=== PATIENT | female | born 1990 | race Two or more races ===

== ENCOUNTER 2017-10-31 19:44 | Emergency (ER) | payer OTHER ==
[~2017-10-31] VITALS: Ht 177.8 cm; Wt 95.3 kg
[2017-10-31 19:55] VITALS: BP 108/66
[2017-10-31] MEDS ORDERED: Lidocaine 1% MPF 10mg/ml 5ml INJ ONE (20:15)
[2017-10-31] MEDS ORDERED: Bacitracin Oint UD TOPIC ONE (20:15)
[2017-10-31] MEDS ORDERED: TYLENOL EXTRA500 MG ORAL (20:29)
[2017-10-31] MEDS ORDERED: BACITRACIN15 GM TOPIC (20:29)
[2017-10-31 20:40] VITALS: BP 108/66
--- NOTE | 2017-10-31 21:02 | Emergency Room Report ---
History of Present Illness General Chief Complaint: Laceration Source: Patient Present Illness HPI The patient is a 27-year-old female presenting for right hand injury which occurred at work today. She states that she struck her right index finger against a sharp metal object and experienced pain and bleeding. Pain is a 5 out of 10 dull ache and does not radiate. She denies any other injury. She denies any numbness. Last tetanus shot was one month ago. Allergies: Coded Allergies: No Known Allergies (Unverified , 10/31/17) Patient History Past Medical History: see triage record Pertinent Family History: none Last Menstrual Period: 10/25/17 Now: No Reviewed Nursing Documentation: PMH: Agreed; PSxH: Agreed Nursing Documentation-PMH Past Medical History: No Stated History Review of Systems All Other Systems: negative except mentioned in HPI Physical Exam Vital Signs Date Time Temp Pulse Resp B/P (MAP) Pulse Ox O2 Delivery O2 Flow Rate FiO2 10/31/17 19:48 98.2 80 16 108/66 100 Room Air 98.2 Sp02 EP Interpretation: reviewed, normal General Appearance: no apparent distress, alert, GCS 15, non-toxic Head: normocephalic, atraumatic Musculoskeletal: normal range of motion, tender - R dorsal index finger proximal to PIPJ Neurologic: alert, oriented x3, responsive, motor strength/tone normal, sensory intact, speech normal Psychiatric: judgement/insight normal, memory normal, mood/affect normal, no suicidal/homicidal ideation Skin: laceration - 2cm linear laceration proximal to R 2nd PIPJ Lymphatic: no adenopathy Procedures Splinting Splinting : Consent: Verbal Location: R index Pre-Made Type: metal Splint: metal finger Pre-Proc Neuro Vasc Exam: normal Post-Proc Neuro Vasc Exam: normal Patient Tolerated: Well Complications: None Laceration/Wound Repair Laceration/Wound Repair : Consent: Verbal Wound Location: upper extremity Wound's Depth, Shape: superficial, linear Wound Length (cm): 2 Wound Explored: clean Irrigated w/ Saline (ccs): 100 Betadine Prep?: Yes Anesthesia: 1% Lidocaine Volume Anesthetic (ccs): 5 Wound Debrided: minimal Wound Repaired With: sutures Suture Size/Type: 5:0, nylon Number of Sutures: 3 Layer Closure?: No Sterile Dressing Applied?: Yes Splint Applied?: Yes Type of Splint Applied: metal finger Sling Applied?: No Patient Tolerated: Well Complications: None Medical Decision Making PA Attestation Dr. Ashraf is my supervising physician. Patient management was discussed with my supervising physician Diagnostic Impression: Primary Impression: Finger laceration Qualified Codes: S61.210A - Laceration without foreign body of right index finger without damage to nail, initial encounter ER Course The patient is a 27-year-old female presenting for right hand injury which occurred at work today. Ddx considered include but not limited to fracture, tendon/ligament injury, avulsion, nerve damage PE: NAD 2cm linear laceration proximal to R 2nd PIPJ. Full AROM intact. SILT The wound was irrigated with normal saline and cleaned with betadine. A 27g needle was used to administer 5mL of lidocaine w.o epi for digital block. 3 sutures were placed with 5-0 nylon. The wound was well approximated and the patient tolerated the procedure well. The wound was then cleaned and bacitracin was applied. A metal finger splint was applied The patient will continue to keep the wound clean and dry and will followup with PMD and workers compensation. Suture instructions provided. ER precautions are given Last Vital Signs Date Time Temp Pulse Resp B/P (MAP) Pulse Ox O2 Delivery O2 Flow Rate FiO2 10/31/17 20:07 98.2 10/31/17 19:55 80 16 108/66 100 Room Air Status: improved Disposition: HOME, SELF-CARE Condition: Improved Scripts Bacitracin (Bacitracin) 28.4 Gm Oint...g. 1 APPLIC TOPIC THREE TIMES A DAY, #28 GM Prov: ARNOLD LOYAY P.A. 10/31/17 Acetaminophen* (TYLENOL EXTRA STRENGTH*) 500 Mg Tablet 500 MG ORAL Q8H PRN for Prn Headache/Temp > 101, #30 TAB 0 Refills Prov: TERZIAN,CHELSI P.A. 10/31/17 Referrals: NOT CHOSEN [facility]/,REFERRING (PCP) Patient Instructions: Laceration Care, Adult Additional Instructions: I discussed my findings with the patient. All questions and concerns have been answered. Treatment and medication compliance have been addressed. I advised the patient that they need to follow up with PMD in 7 days for wound check and suture removal. If you are unable to see PMD, return to the ED in 7 days. Return to ED if pain remains or worsens, you notice discharge from the wound, the wound continues to bleed, the suture/s fall out, you notice a fever or chills, or for any reason. Patient is advised to keep the wound clean and apply an antibacterial ointment. Patient verbalized understanding of discharge instructions. CHELSI LOYA Oct 31, 2017 21:02
== END 2017-10-31 20:40 | disposition home or self-care (01) ==
LOC: EMR 20:00
DX: S61.210A Laceration without foreign body of right index finger without damage to nail, initial encounter (principal); W45.8XXA Other foreign body or object entering through skin, initial encounter; Y92.89 Other specified places as the place of occurrence of the external cause; Y99.0 Civilian activity done for income or pay
CPT/HCPCS: 99284